=== PATIENT | male | born 1975 | race Caucasian/White ===

== ENCOUNTER 2020-12-07 11:57 | Inpatient (IN) | payer OTHER ==
[~2020-12-07] VITALS: Ht 175.3 cm; Wt 79.4 kg
--- NOTE | 2020-12-07 12:22 | NUR ---
PTE ALERTA Y ORIENTADO EN ANGEL THALIA ESFERAS, EL CUAL REFIERE DOLOR ABDMINAL EN CUADRANTE INFERIOR LT HACE 7 STRINGER PARA EL CUAL RECIBIO TX GURU NO JOHNSON ROLANDO. SE UBICA EN AREA DE OBSERVACION.
--- NOTE | 2020-12-07 13:12 | NUR ---
PACIENTE EVALUADO POR DR. GURROLA. MRS. A.TRIVEDI COLECTA MUESTRAS DE OSMIN Y ADMINISTRA MEDICAMENTOS ARSALAN ORDEN MEDICA. SE ORIENTA A PACIENTE ACERCA DE TRATAMIENTO. PACIENTE REFIERE ENTENDER. SE LE ENTREGA A PACIENTE CONTRASTE PARA CT.
[2020-12-08] MEDS ORDERED: SULINDAC200 MG (08:18)
== END 2020-12-21 13:13 | disposition home or self-care (01) | DRG 392 ==
LOC: ER 11:57 → SURH 18:44
PROVIDERS: ADMIT Surgery; ATTEND Surgery
PROC: 02H633Z Insertion of Infusion Device into Right Atrium, Percutaneous Approach (ICD-10-PCS; 2020-12-08)
PROC: 0W9J30Z Drainage of Pelvic Cavity with Drainage Device, Percutaneous Approach (ICD-10-PCS; principal; 2020-12-13)
DX: K57.20 Diverticulitis of large intestine with perforation and abscess without bleeding (principal); K56.51 Intestinal adhesions [bands], with partial obstruction; Z20.822 Contact with and (suspected) exposure to COVID-19; B96.20 Unspecified Escherichia coli [E. coli] as the cause of diseases classified elsewhere

== ENCOUNTER 2021-02-17 05:40 | Day surgery (SDC) | payer OTHER ==
[~2021-02-17 05:40] MED LIST: SULINDAC200 MG
== END 2021-02-17 09:45 | disposition home or self-care (01) ==
LOC: AMB-ENDOS 05:40
PROVIDERS: ATTEND Surgery
DX: K57.20 Diverticulitis of large intestine with perforation and abscess without bleeding (principal); K64.8 Other hemorrhoids; Z20.822 Contact with and (suspected) exposure to COVID-19